=== PATIENT | male | born 1940 | race African-American/Black ===

== ENCOUNTER 2017-10-27 14:03 | Inpatient (IN) | payer MEDICARE, OTHER ==
[~2017-10-27] VITALS: Ht 172.7 cm; Wt 72.6 kg
--- NOTE | 2017-10-27 14:21 | Emergency Room Report ---
History of Present Illness General Chief Complaint: Altered Mental Status Present Illness HPI Patient is a 77-year-old male sent in by nursing facility after increased difficulty breathing and decreased oxygen saturation. Patient prior history of non-Hodgkin's lymphoma. Patient was noted to have increased altered mental status as well as difficulty breathing. Patient prior history of DVT. The patient was noted to have POLST with a preferred the level of intensity of treatment only. Allergies: Coded Allergies: No Known Allergies (Unverified , 10/27/17) Patient History Past Medical History: see triage record Reviewed Nursing Documentation: PMH: Agreed; PSxH: Agreed Physical Exam Vital Signs Date Time Temp Pulse Resp B/P (MAP) Pulse Ox O2 Delivery O2 Flow Rate FiO2 10/27/17 13:59 98.7 70 20 138/68 94 Non-Rebreather 98.8 Sp02 EP Interpretation: abnormal General Appearance: severe distress, lethargic, Chronically Ill ENT: other Neck: limited range of motion Respiratory: rales Cardiovascular #1: edema - anasarca Gastrointestinal: distended Musculoskeletal: decreased range of motion Neurologic: motor weakness, other - agonal breathing Psychiatric: other - unresponsive Skin: normal inspection, normal color Medical Decision Making Diagnostic Impression: Primary Impression: Altered mental status Additional Impressions: Sepsis Lymphoma ER Course Patient presented for altered mental status.Differential diagnosis included but was not limited to ischemic stroke, subarachnoid hemorrhage, hypoglycemia, spinal cord injury, neurodegenerative disorder, urinary tract infection, hypoxemia.Because of complexity of patient's case laboratory testing and imaging studies were ordered. EKG interpreted by me showed sinus tachycardia with rate [address] depression others diffuse T wave inversion noted patient was noted to have prior history of pulmonary embolism. The patient's pulse patient is to have comfort measures only. Patient will likely require hospitalization due to current comfort measures not being able to be maintained at the nursing facility.The patient was started on supplemental oxygen. The patient was given IV fluids. Patient was given morphine for comfort. The patient was discussed with Dr. Cordoba for [facility] physician. Labs Test 10/27/17 16:16 White Blood Count 17.5 K/UL (4.8-10.8) Red Blood Count 3.90 M/UL (4.70-6.10) Hemoglobin 11.7 G/DL (14.2-18.0) Hematocrit 35.7 % (42.0-52.0) Mean Corpuscular Volume 92 FL (80-99) Mean Corpuscular Hemoglobin 29.9 PG (27.0-31.0) Mean Corpuscular Hemoglobin Concent 32.7 G/DL (32.0-36.0) Red Cell Distribution Width 15.6 % (11.6-14.8) Platelet Count 176 K/UL (150-450) Mean Platelet Volume 6.8 FL (6.5-10.1) Neutrophils (%) (Auto) 61.2 % (45.0-75.0) Lymphocytes (%) (Auto) 33.7 % (20.0-45.0) Monocytes (%) (Auto) 4.5 % (1.0-10.0) Eosinophils (%) (Auto) 0.0 % (0.0-3.0) Basophils (%) (Auto) 0.5 % (0.0-2.0) Sodium Level 145 MMOL/L (136-145) Potassium Level 4.2 MMOL/L (3.5-5.1) Chloride Level 102 MMOL/L (98-107) Carbon Dioxide Level 41 MMOL/L (21-32) Anion Gap 2 mmol/L (5-15) Blood Urea Nitrogen 45 mg/dL (7-18) Creatinine 1.0 MG/DL (0.55-1.30) Estimat Glomerular Filtration Rate mL/min (>60) Glucose Level 87 MG/DL (74-106) Calcium Level 8.4 MG/DL (8.5-10.1) Total Bilirubin 0.4 MG/DL (0.2-1.0) Aspartate Amino Transf (AST/SGOT) 2402 U/L (15-37) Alanine Aminotransferase (ALT/SGPT) 1880 U/L (12-78) Alkaline Phosphatase 165 U/L (46-116) Pro-B-Type Natriuretic Peptide > 73348 pg/mL (0-125) Total Protein 5.2 G/DL (6.4-8.2) Albumin 2.5 G/DL (3.4-5.0) Globulin 2.7 g/dL Albumin/Globulin Ratio 0.9 (1.0-2.7) Thyroid Stimulating Hormone (TSH) 0.692 uiU/mL (0.358-3.740) EKG Diagnostic Results Rate: tachycardiac - 102 Rhythm: NSR ST Segments: other - st depression Last Vital Signs Date Time Temp Pulse Resp B/P (MAP) Pulse Ox O2 Delivery O2 Flow Rate FiO2 10/27/17 13:59 98.7 70 20 138/68 94 Non-Rebreather 98.8 Status: unchanged Disposition: ADMITTED INPATIENT Condition: Serious Matty Shen MD Oct 27, 2017 14:21
[2017-10-27] MEDS ORDERED: Sodium Chloride 500ML 500 ML IV ONE (14:45)
[2017-10-27 15:30] VITALS: BP 60/40
[2017-10-27 16:00] VITALS: BP 60/50
[2017-10-27 16:45] LABS: BASOPHILS % (AUTO) 0.5 % (0.0-2.0); HEMATOCRIT 35.7 % (42.0-52.0); HEMOGLOBIN 11.7 G/DL (14.2-18.0); LYMPHOCYTES % (AUTO) 33.7 % (20.0-45.0); MEAN CORPUSCULAR VOLUME 92 FL (80-99); MONOCYTES % (AUTO) 4.5 % (1.0-10.0); NEUTROPHILS % (AUTO) 61.2 % (45.0-75.0); PLATELET COUNT 176 K/UL (150-450); RED CELL DISTRIBUTION WIDTH 15.6 % (11.6-14.8); WHITE BLOOD COUNT 17.5 K/UL (4.8-10.8)
[2017-10-27] MEDS ORDERED: FUROSEMIDE40 MG ORAL (16:57)
[2017-10-27] MEDS ORDERED: DOCUSATE SODIU100 MG ORAL (16:57)
[2017-10-27] MEDS ORDERED: ZOFRAN ODT8 MG ORAL (16:57)
[2017-10-27] MEDS ORDERED: SENNA-S LAXATI1 EACH PO (16:57)
[2017-10-27] MEDS ORDERED: ACETAMINOPHEN325 M1 ORAL (16:57)
[2017-10-27] MEDS ORDERED: METOPROLOL TART25 MG ORAL (16:57)
[2017-10-27] MEDS ORDERED: LACTULOSE20 GM/301 ORAL (16:57)
[2017-10-27] MEDS ORDERED: DUONEB 0.5-3(2.53 ML HHN (16:57)
[2017-10-27] MEDS ORDERED: CATAPRES0.1 MG ORAL (16:57)
[2017-10-27 16:58] VITALS: BP 66/40
[2017-10-27 17:01] LABS: ANION GAP 2 mmol/L (5-15); BLOOD UREA NITROGEN 45 mg/dL (7-18); CALCIUM 8.4 MG/DL (8.5-10.1); CHLORIDE 102 MMOL/L (98-107); POTASSIUM 4.2 MMOL/L (3.5-5.1); SODIUM 145 MMOL/L (136-145)
[2017-10-27 17:15] LABS: ALANINE AMINOTRANSFERASE 1880 U/L (12-78); ALBUMIN 2.5 G/DL (3.4-5.0); ALBUMIN/GLOBULIN RATIO 0.9 (1.0-2.7); ALKALINE PHOSPHATASE 165 U/L (46-116); ASPARTATE AMINO TRANSFERASE 2402 U/L (15-37); BILIRUBIN,TOTAL 0.4 MG/DL (0.2-1.0)
[2017-10-27 17:26] LABS: CARBON DIOXIDE 41 MMOL/L (21-32)
[2017-10-27] MEDS ORDERED: cefTRIAXone 1 GM in NS 55 ML IVPB ONE (17:30)
[2017-10-27] MEDS ORDERED: LORAZEPAM0.5 MG ORAL (17:51)
[2017-10-27] MEDS ORDERED: TRAMADOL HCL50 MG ORAL (17:51)
[2017-10-27] MEDS ORDERED: ONDANSETRON ODT4 MG BC (17:51)
[2017-10-27] MEDS ORDERED: MAGNESIUM CITR296 M1 PO (17:51)
[2017-10-27 20:15] VITALS: BP 103/73
[2017-10-27] MEDS ORDERED: LORazepam Inj 2mg/ml 1ml IV PRN (21:00)
[2017-10-27] MEDS: Morphine Sulfate 2mg/ml Inj(IV/IM USE ONLY) IVP PRN (21:13)
[2017-10-28] VITALS (7 sets, daily range): BP systolic 56–96; BP diastolic 36–60
[2017-10-28] MEDS: Morphine Sulfate 2mg/ml Inj(IV/IM USE ONLY) IVP PRN ×2 (03:11→11:39)
--- NOTE | 2017-10-28 09:52 | History & Physical ---
History and Physical History & Physicial dict DNR, comfort care Shiraz Cordoba MD Oct 28, 2017 09:52
--- NOTE | 2017-10-28 15:45 | History and Physical Report ---
DATE OF ADMISSION: 10/27/2017 CHIEF COMPLAINT: Short of breath and low saturation. HISTORY OF PRESENT ILLNESS: The patient is unable to give any history. The records were reviewed. He was sent from a nursing facility because of distress despite the fact that his POLST indicates comfort measures only and DNR. He did have some distress and was seen in the emergency department. He was given oxygen and antibiotics as well as fluids because of hypotension. I have discussed the case with the emergency physician and it was clear the patient is actively dying. Admission was arranged for comfort care. PAST MEDICAL HISTORY: Non-Hodgkin's lymphoma, deep vein thrombosis, anemia, and protein-calorie malnutrition. ALLERGIES: None. MEDICATIONS: Reviewed. He is unable to take oral medications at this time. REVIEW OF SYSTEMS: Cannot be obtained. PHYSICAL EXAMINATION: GENERAL: The patient appears acutely and chronically ill. VITAL SIGNS: The blood pressure was 66/50 when I saw him, improved to 90/53, his saturation was 79% on room air. There is no fever. HEENT: Head is normocephalic. He is poorly responsive. CHEST: Has rhonchi and rales. CARDIAC: Rhythm is regular. ABDOMEN: Soft and nontender. EXTREMITIES: Shows chronic stasis changes. There is 2 to 3+ edema. LABORATORY AND DIAGNOSTIC DATA: Laboratory studies show white count is 17,500, hemoglobin 11.7. BUN 45, creatinine 1, bicarbonate 41. Liver enzymes are markedly elevated. Natriuretic peptide is greater than 35,000. Albumin 2.5. Chest x-ray is not reported. IMPRESSION: 1. Lymphoma, terminally ill. 2. Congestive heart failure. 3. Possible pneumonia with sepsis. PLAN: The patient will be given comfort measures including Ativan and narcotics for shortness of breath or pain or agitation. His POLST was reviewed and comfort measures will be continued. His prognosis is grave. Shiraz Cordoba M.D. DR: ZE JOB#: [id number] CC: Shiraz Cordoba M.D.; Fax#: [phone]
[2017-10-29] VITALS: BP 94/48
[2017-10-29 04:00] VITALS: BP 109/80
[2017-10-29 08:00] VITALS: BP 145/92
[2017-10-29 12:00] VITALS: BP 90/66
--- NOTE | 2017-10-29 12:42 | Cardiology Report ---
APPROVED REPORT EKG Measurement Heart [id number] SD [id number] Sinus tachycardia with premature atrial complexes Abnormal ECG
[2017-10-29 16:00] VITALS: BP 95/55
[2017-10-29 20:00] VITALS: BP 101/59
[2017-10-30] VITALS: BP 82/57
[2017-10-30 04:00] VITALS: BP 89/55
[2017-10-30 08:00] VITALS: BP 105/55
[2017-10-30 12:00] VITALS: BP 87/84
[2017-10-30 16:00] VITALS: BP 92/76
--- NOTE | 2017-10-30 18:38 | Pulmonology Progress Note ---
Assessment/Plan Assessment/Plan 1. Lymphoma, terminally ill. 2. Congestive heart failure. 3. Possible pneumonia with sepsis. PLAN: The patient will be given comfort measures including Ativan and narcotics for shortness of breath or pain or agitation. His POLST was reviewed and comfort measures will be continued. His prognosis is grave. niece is asking for carolina to be placed. this is currently not indicated Subjective ROS Limited/Unobtainable: Yes Allergies: Coded Allergies: No Known Allergies (Unverified , 10/27/17) Subjective sleeping no distress no reports of cp nv or bleeding no fever Objective Last 24 Hour Vital Signs Date Time Temp Pulse Resp B/P (MAP) Pulse Ox O2 Delivery O2 Flow Rate FiO2 10/30/17 16:00 97.2 88 17 92/76 (81) 91 97.2 10/30/17 12:00 96.8 84 16 87/84 (85) 90 96.8 10/30/17 09:00 Room Air 10/30/17 08:00 97.8 89 17 105/55 (72) 93 97.8 10/30/17 04:00 97.0 75 12 89/55 (66) 85 97.0 10/30/17 00:00 18 82/57 (65) 93 10/29/17 21:00 Room Air 10/29/17 20:00 97.3 68 18 101/59 (73) 91 97.3 Intake and Output 10/29/17 10/30/17 19:00 07:00 Intake Total 200 ml 30 ml Output Total 0 ml Balance 200 ml 30 ml Intake Oral 200 ml 30 ml Output Stool Total 0 ml # Voids 2 1 General Appearance: cachetic Respiratory/Chest: crackles/rales Cardiovascular: normal rate, regular rhythm, edema Neurologic/Psychiatric: sensory deficit Lymphatic: no neck adenopathy, no groin adenopathy Microbiology Date/Time Source Procedure Growth Status 10/27/17 21:00 Nasal Nares MRSA Culture - Final NO METHICILLIN RESISTANT STAPH AUREUS... Complete 10/27/17 21:00 Rectum - Final NO CARBAPENEM-RESISTANT ENTEROBACTERI... Complete 10/27/17 21:00 Rectal Mucosa VRE Culture - Final Enterococcus Faecium - Vre Complete Current Medications Medications (Trade) Dose Ordered Sig/[place]avan Route PRN Reason Start Time Stop Time Status Last Admin Dose Admin Lorazepam (Ativan 2mg/ml 1ml) 1 mg Q2H PRN IV For Anxiety 10/27/17 21:00 11/03/17 20:59 Morphine Sulfate (Morphine Sulfate) 2 mg Q2H PRN IVP For Pain 10/27/17 21:00 11/03/17 20:59 10/28/17 11:39 Gita Trevino DO Oct 30, 2017 18:38
[2017-10-30 20:00] VITALS: BP 68/34
[2017-10-31 00:59] VITALS: BP 82/59
--- NOTE | 2017-10-31 07:06 | Pulmonology Progress Note ---
Assessment/Plan Assessment/Plan 1. Lymphoma, terminally ill. 2. Congestive heart failure. 3. Possible pneumonia with sepsis. PLAN: supportive care pain control nebs no carloina at this time po encouraged placement for comfort measure, prognosis is grave Subjective ROS Limited/Unobtainable: Yes Allergies: Coded Allergies: No Known Allergies (Unverified , 10/27/17) Subjective more awake this am no distress no reports of cp nv or bleeding no fever minimal po nonambulatory no family presnt Objective Last 24 Hour Vital Signs Date Time Temp Pulse Resp B/P (MAP) Pulse Ox O2 Delivery O2 Flow Rate FiO2 10/31/17 04:59 96.0 67 16 88 96.0 10/31/17 00:59 97.0 83 17 82/59 (67) 100 97.0 10/30/17 21:36 Room Air 10/30/17 20:00 96.8 78 16 68/34 (45) 99 96.8 10/30/17 16:00 97.2 88 17 92/76 (81) 91 97.2 10/30/17 12:00 96.8 84 16 87/84 (85) 90 96.8 10/30/17 09:00 Room Air 10/30/17 08:00 97.8 89 17 105/55 (72) 93 97.8 Intake and Output 10/30/17 10/31/17 19:00 07:00 Intake Total 100 ml 240 ml Balance 100 ml 240 ml Intake Oral 100 ml 240 ml # Voids 2 1 # Bowel Movements 1 General Appearance: cachetic Respiratory/Chest: rhonchi Cardiovascular: normal rate, regular rhythm, edema - ue le Abdomen: soft, non tender, no organomegaly Skin: no rash Neurologic/Psychiatric: alert Current Medications Medications (Trade) Dose Ordered Sig/[place]avan Route PRN Reason Start Time Stop Time Status Last Admin Dose Admin Lorazepam (Ativan 2mg/ml 1ml) 1 mg Q2H PRN IV For Anxiety 10/27/17 21:00 11/03/17 20:59 Morphine Sulfate (Morphine Sulfate) 2 mg Q2H PRN IVP For Pain 10/27/17 21:00 11/03/17 20:59 10/28/17 11:39 Gita Trevino DO Oct 31, 2017 07:06
[2017-10-31 08:00] VITALS: BP 81/40
[2017-10-31 16:00] VITALS: BP 77/44
[2017-10-31 20:00] VITALS: BP 65/42
[2017-11-01] VITALS: BP 63/47
[2017-11-01 04:00] VITALS: BP 137/91
[2017-11-01 08:00] VITALS: BP 48/19
[2017-11-01 12:00] VITALS: BP 45/29
[2017-11-01] MEDS: Morphine Sulfate 2mg/ml Inj(IV/IM USE ONLY) IVP PRN (12:33)
[2017-11-01 16:00] VITALS: BP 63/47
--- NOTE | 2017-11-01 16:29 | Pulmonology Progress Note ---
Assessment/Plan Assessment/Plan 1. Lymphoma, terminally ill. 2. Congestive heart failure. 3. Possible pneumonia with sepsis. more alert eating minimal hypotensive, minimal output disc w family awaiting dc on comfort care Subjective ROS Limited/Unobtainable: Yes Allergies: Coded Allergies: No Known Allergies (Unverified , 10/27/17) Objective Last 24 Hour Vital Signs Date Time Temp Pulse Resp B/P (MAP) Pulse Ox O2 Delivery O2 Flow Rate FiO2 11/01/17 12:00 97.7 72 16 45/29 (34) 91 97.7 11/01/17 09:00 Nasal Cannula 4.0 11/01/17 08:00 97.3 84 16 48/19 (29) 97 97.3 11/01/17 04:00 96.2 67 20 137/91 (106) 86 96.2 11/01/17 01:04 92 Nasal Cannula 3.0 32 11/01/17 01:04 Nasal Cannula 2.0 28 11/01/17 00:00 96.1 75 18 63/47 (52) 85 96.1 10/31/17 21:00 Nasal Cannula 4.0 10/31/17 20:00 96.0 98 20 65/42 (50) 85 96.0 Intake and Output 10/31/17 11/01/17 19:00 07:00 Intake Total 275 ml 120 ml Output Total 2 ml 0 ml Balance 273 ml 120 ml Intake Oral 275 ml 120 ml Output Urine Total 2 ml 0 ml # Bowel Movements 3 1 General Appearance: no acute distress, cachetic HEENT: atraumatic Respiratory/Chest: lungs clear Cardiovascular: normal rate, regular rhythm Microbiology Date/Time Source Procedure Growth Status 10/31/17 10:45 Stool Clostridium difficile Toxin Assay - Final Complete Current Medications Medications (Trade) Dose Ordered Sig/[place]avan Route PRN Reason Start Time Stop Time Status Last Admin Dose Admin Lorazepam (Ativan 2mg/ml 1ml) 1 mg Q2H PRN IV For Anxiety 10/27/17 21:00 11/03/17 20:59 Morphine Sulfate (Morphine Sulfate) 2 mg Q2H PRN IVP For Pain 10/27/17 21:00 11/03/17 20:59 11/01/17 12:33 Shiraz Cordoba MD Nov 01, 2017 16:29
[2017-11-01 20:21] VITALS: BP 111/73
[2017-11-02] VITALS: BP 96/70
--- NOTE | 2017-11-04 15:34 | Discharge Summary ---
Discharge Summary Discharge Summary _ SUMMARY DATE OF ADMISSION: 10/27/2017 DATE OF EXPIRATION: 11/02/2017 REASON FOR ADMISSION: 77 years old male,resident of long-term facility, with past medical history of non-Hodgkin's lymphoma, DVT, anemia, protein calorie malnutrition, was sent from the long-term facility due to increased respiratory distress and altered mental status. POLST indicated comfort measure only and DO NOT RESUSCITATE status, however [facility]. Patient required placement of 100% nonrebreathing mask with saturation of 94% . Patient was tachycardic Laboratory workup revealed leukocytosis with WBC 17.5. BUN 45 creatinine 1.0 . AST 2400 , ALT 1880. ProBNP above 35,000 . Hemoglobin 11.7 ,hematocrit 35.7 . Patient admitted with diagnoses of non-Hodgkin lymphoma (terminally ill), sepsis, possible pneumonia, altered mental status, congestive heart failure. HOSPITAL COURSE: Patient admitted to medical surgical floor. Patient with DNR/DNI status and comfort measures only as per POLST. Supportive care provided. No further labs. Pain management provided. Supplemental oxygen provided along with pulmonary toilet with bronchodilator. Oral hydration was encouraged. Overall prognosis was grave. Family was at the bedside . Patient with minimal food intake ,hypotensive and minimal output. domestic cleaner on patient found to be nonresponsive. Patient was pronounced at 5:30 AM 11/02 Cause of : cardiopulmonary arrest FINAL DIAGNOSES: Non-Hodgkin lymphoma, terminally ill Sepsis Possible pneumonia Congestive heart failure Altered mental status, likely due to toxic metabolic encephalopathy Comfort care I have been assigned to dictate discharge summary for this account. I was not involved in the patient's management. Jennifer Colmenares NP Nov 04, 2017 15:34
== END 2017-11-02 05:30 | disposition expired | DRG 871 ==
LOC: EDBD 14:03 → EMR 14:38 → EDBEDREQ 17:29 → 3E 17:40 → EDBEDREQ 18:44 → 4W 10-30 18:00
DX: A41.9 Sepsis, unspecified organism (principal); J18.9 Pneumonia, unspecified organism; C85.90 Non-Hodgkin lymphoma, unspecified, unspecified site; I50.9 Heart failure, unspecified; Z66 Do not resuscitate; Z51.5 Encounter for palliative care; I95.9 Hypotension, unspecified; Z86.718 Personal history of other venous thrombosis and embolism
CPT/HCPCS: 36415; 80053; 83880; 84443; 85025; 87081; 87324; 93005; 94760